=== PATIENT | female | born 2000 | race Two or more races ===

== ENCOUNTER 2021-11-10 02:30 | Emergency (ER) | payer MEDICAID ==
[~2021-11-10] VITALS: Ht 157.5 cm; Wt 56.7 kg
[2021-11-10] MEDS ORDERED: CEPH500C PO (07:00)
[2021-11-10] MEDS ORDERED: IBUP800T26 PO (07:00)
[2021-11-10 07:13] VITALS: BP 139/92
== END 2021-11-10 07:22 | disposition home or self-care (01) ==
LOC: ER 02:37
DX: S81.011A Laceration without foreign body, right knee, initial encounter (principal); W10.8XXA Fall (on) (from) other stairs and steps, initial encounter; Y93.01 Activity, walking, marching and hiking; Y92.89 Other specified places as the place of occurrence of the external cause; Y99.8 Other external cause status
CPT/HCPCS: 12002